=== PATIENT | male | born 1975 | race Caucasian/White ===

== ENCOUNTER 2019-02-11 09:07 | Day surgery (SDC) | payer BC ==
[2019-02-11] MEDS ORDERED: PROPOFOL 10 MG/ML VIAL IV ONE (09:08)
[2019-02-11] MEDS ORDERED: LIDOCAINE 2% MDV (20MG/ML) 20ML VIAL IV ONE (09:08)
--- NOTE | 2019-02-11 13:30 | Operative Note ---
DATE OF SURGERY: 02/11/2019 OPERATION: COLONOSCOPY to the cecum with cold biopsy forceps polypectomy. INDICATION: Colorectal cancer screening, family history of colon cancer (father). The patient also suffers with constipation. ANESTHESIA: Intravenous sedation was administered by the department of anesthesiology and included Diprivan titrated to effect. PROCEDURE: Following informed consent from this alert individual including a discussion of the risks and benefits of the procedure and an opportunity for the patient to ask questions, the patient was in the left lateral decubitus position. A digital rectal examination was performed. No abnormalities were noted. Following this, the Olympus [id number] video colonoscope was inserted into the rectum without resistance. The rectal mucosa had a normal appearance with normal folds and distensibility. The colonoscope was advanced up through the bowel to the level of the cecum without much difficulty. Throughout the bowel the mucosa appeared normal, the folds were normal, and the bowel was fairly well distensible. The cecum was defined by noting the appendiceal orifice and ileocecal valve. At the base of the cecum, there was a diminutive 3 mm polyp noted which was removed with one application of cold biopsy forceps. From this point, the colonoscope was slowly withdrawn. The colon preparation overall was good. No other changes were noted through the bowel upon withdrawal. Retroflexion in the rectum was endoscopically normal. The instrument was straightened and removed. The patient tolerated the procedure well and was returned to the recovery area in stable condition. IMPRESSION: 1. A 3 mm cecal polyp removed with cold biopsy forceps. 2. Otherwise unremarkable colonoscopy to the cecum. RECOMMENDATIONS: Because of the patient's family history of colon cancer in his father, I did recommend a surveillance examination in 5 years' time. Further recommendations may be forthcoming pending results of biopsy as well. Followup will be with Dr. Hernandez. As always, thank you for allowing me to participate in the care of your patient. CC: MD SHARIF Junior
== END 2019-02-11 10:55 | disposition home or self-care (01) ==
LOC: HOP 09:07
PROVIDERS: ATTEND Internal Medicine Gastroenterology
DX: Z12.11 Encounter for screening for malignant neoplasm of colon (principal); Z80.0 Family history of malignant neoplasm of digestive organs; Z87.19 Personal history of other diseases of the digestive system; D12.0 Benign neoplasm of cecum; E03.9 Hypothyroidism, unspecified

== ENCOUNTER 2019-09-23 16:05 | Emergency (ER) | payer BC ==
--- NOTE | 2019-09-23 16:42 | Emergency Department Record ---
History of Present Illness - General Chief Complaint: Chest Pain Stated Complaint: CHEST PAIN Time Seen by Provider: 09/23/19 16:40 Source: Patient Mode of Arrival: Ambulatory Limitations: No limitations - History of Present Illness Initial Comments: 44 yo male presents with chest pain. The onset was about 4 days ago. The pain is over the left upper chest. The pain is constant but more noticeable with certain movements. He reports he is just getting over a two week cough. At that time he had productive sputum and chills. He was treated by a tele medicine physician. He states the cough is better. He is not a smoker. His father did have an PA in his mid 50's. No DM, HTN, or hyperlipidemia. No known heart or lung disease. MD Complaint: Chest pain Onset/Timin -: Days(s) Pain Location: Left chest Pain Radiation: None Severity: Moderate Severity scale (1-10): 4 Quality: Dull Consistency: Constant Improves With: Nothing Worsens With: Movement Context: Recent illness Anginal Symptoms: Diaphoresis Treatments Prior to Arrival: Aspirin Treatment Prior to Arrival Comment:: 81mg - Related Data Home Medications Medication Instructions Recorded Confirmed Last Taken Cinnamon Bark [Cinnamon] 500 mg PO DAILY 09/23/19 09/23/19 1 Day Ago ~09/22/19 1 Ergocalciferol (Vitamin D2) 2,000 unit PO DAILY 09/23/19 09/23/19 1 Day Ago [Ergocal] ~09/22/19 Garlic 1 cap PO DAILY 09/23/19 09/23/19 1 Day Ago ~09/22/19 Allergies Allergy/AdvReac Type Severity Reaction Status Date / Time amoxicillin Allergy Unknown HIVES Verified 09/23/19 16:59 Penicillins Allergy Unknown HIVES Verified 09/23/19 16:59 Travel Screening - Travel/Exposure Within Last 30 Days Have you traveled within the last 30 days?: No - Travel/Exposure Within Last Year Have you traveled outside the [place] in the last year?: No - Additonal Travel Details Have you been exposed to anyone with a communicable illness?: No - Travel Symptoms Symptom Screening: None Review of Systems Constitutional: Denies: Chills, Fever, Malaise, Weakness Eyes: Denies: Eye discharge ENT: Denies: Congestion, Throat pain Respiratory: Reports: Cough. Denies: Dyspnea, Hemoptysis, Wheezes Cardiovascular: Reports: Chest pain. Denies: Edema, Palpitations, Syncope Endocrine: Denies: Fatigue, Polydipsia, Polyuria Gastrointestinal: Denies: Abdominal pain, Diarrhea, Nausea, Vomiting Genitourinary: Denies: Dysuria, Frequency, Hematuria Musculoskeletal: Denies: Arthralgia, Back pain, Joint swelling, Myalgia, Neck pain Skin: Denies: Bruising, Change in color, Rash Neurological: Denies: Headache, Numbness, Weakness Psychiatric: Denies: Anxiety Hematological/Lymphatic: Denies: Easy bleeding, Easy bruising Past Medical History - SOCIAL HISTORY Smoking Status: Former smoker Alcohol Use: None Drug Use: None - RESPIRATORY Hx Respiratory Disorders: Yes Hx Asthma: Yes (only uses inhaler with allergy season Spring/Fall) Hx Sleep Apnea: Yes Hx of CPAP: No (does not use) - CARDIOVASCULAR Hx Cardio Disorders: No Comment:: reports blood pressure is borderline high, doctor is monitoring - NEURO Hx Neuro Disorders: Yes Hx of Migraines: Yes (occ.) - GI Hx GI Disorders: Yes Hx Wt Loss/Wt Gain: Yes (gained 25 lbs in 2 years) Comment:: some constipation - Hx Genitourinary Disorders: No - ENDOCRINE Hx Endocrine Disorders: Yes Hx Thyroid Disease: Yes (underactive on rx) - MUSCULOSKELETAL Hx Musculoskeletal Disorders: Yes Comment:: Had surgery for back - PSYCH Hx Psych Problems: No - HEMATOLOGY/ONCOLOGY Hx Hematology/Oncology Disorders: No Family Medical History Any Significant Family History?: Yes Hx Cancer: Father *Cancer Comment: colon Hx Diabetes: Father, Mother Hx Heart Disease: Father Physical Exam - General General Appearance: Alert, Oriented x3, Cooperative, No acute distress Limitations: No limitations - Head Head exam: Atraumatic, Normal inspection - Eye Eye exam: Normal appearance, PERRL. negative: Conjunctival injection, Scleral icterus - ENT ENT exam: Normal exam, Mucous membranes moist Ear exam: Normal external inspection Nasal Exam: Normal inspection Mouth exam: Normal external inspection - Neck Neck exam: Normal inspection, Full ROM - Respiratory Respiratory exam: Normal lung sounds bilaterally, Chest wall tenderness (tender left mid upper chest on the left. The tender area covers about 2 ribs. He is non tender below and above the tender area) - Cardiovascular Cardiovascular Exam: Regular rate, Normal rhythm, Normal heart sounds. negative: Diastolic murmur, Systolic murmur Peripheral Pulses: 2+: Radial (R), Radial (L) - GI/Abdominal GI/Abdominal exam: Soft. negative: Tenderness - Rectal Rectal exam: Deferred - exam: Deferred - Extremities Extremities exam: Normal inspection. negative: Pedal edema, Tenderness - Back Back exam: Denies: CVA tenderness (R), CVA tenderness (L) - Neurological Neurological exam: Alert, Oriented X3 - Psychiatric Psychiatric exam: Normal affect, Normal mood - Skin Skin exam: Dry, Intact, Normal color, Warm Course Vital Signs 09/23/19 16:09 Temperature 98.2 F Pulse Rate 93 H Respiratory 18 Rate Blood Pressure 194/120 Pulse Ox 97 - Reevaluation(s) Reevaluation #1: 09/23/19 16:41 EKG #1: 16:18 Rate: 68 Rhythm: sinus Folcroft: left Intervals: normal ST segments: no acute changes Prior: none Normal EKG 09/23/19 17:51 09/23/19 17:56 The labs were reviewed The CBC and CMP are normal The Troponin is normal The D-Dimer is normal CXR ordered. 09/23/19 18:11 The XR was reviewed by me No acute findings. 09/23/19 18:36 The patient has very atypical symptoms. Constant 4 days. Negative labs and normal EKG His HEART score is low risk The plan is DC home if the second set of enzymes in negative He will be referred to the outpatient cardiology clinic We discussed reasons to return immediately to the ED as well. Medical Decision Making - Lab Data Result diagrams: 09/23/19 16:13 09/23/19 16:13 Disposition Disposition: Discharge Clinical Impression: Chest wall pain Disposition: Home, Self-Care Condition: (1) Good Instructions: Chest Pain (ED) Additional Instructions: Review this ER visit and the tests performed with your family doctor Call your doctor for the next available follow up appointment Return to the ER for a recheck if worse, any new concerns or questions Take the prescriptions provided as directed Referrals: Edmond Rich M.D. [MEDICAL DOCTOR] - [facility] Special[facility] [Provider Group] Forms: Patient Portal Access Time of Disposition: 18:11 Quality - Quality Measures Quality Measures: N/A - Blood Pressure Screening Does Patient Have Any of the Following: No Blood Pressure Classification: Hypertensive Reading Systolic Measurement: 194 Diastolic Measurement: 120 Screening for High Blood Pressure: < Pre-Hypertensive BP, F/U Documented > [G8950] Pre-Hypertensive Follow-up Interventions: Referral to alternative/primary care provider.
[2019-09-23 16:55] LABS: ABSOLUTE NEUTROPHIL COUNT 6.39; BASO % 0.3 % (0-6); EOS % 2.9 % (0-6); GRAN % 63.4 % (47-80); HEMATOCRIT 49.8 % (42.0-52.0); HEMOGLOBIN 16.4 gm/dl (14.0-18.0); LYMPH % 23.9 % (16-45); MEAN CELL VOLUME 85.7 fl (81-97); MEAN CORPUSCULAR HEMOGLOBIN 28.2 pg (27-33); MEAN CORPUSCULAR HGB CONC 32.9 g/dl (32-36); MONO % 9.5 % (0-9); PLATELET COUNT 317 K/uL (130-400); RED BLOOD COUNT 5.81 M/uL (4.40-5.70); WHITE BLOOD COUNT W/O DIFF 10.1 K/uL (4.2-12.2)
[2019-09-23] MEDS ORDERED: ASPIRIN 325 MG TABLET PO ONE (16:55)
[2019-09-23 17:15] LABS: BLOOD UREA NITROGEN 19 mg/dL (6-20); EST GLOMERULAR FILTRATION RATE > 60 mL/min
[2019-09-23 17:16] LABS: PARTIAL THROMBOPLASTIN TIME 28.9 SECONDS (24.5-39.1); PROTHROMBIN TIME (PATIENT) 9.9 SECONDS (9.5-12.1); TOTAL PROTEIN 7.7 g/dL (6.6-8.7)
[2019-09-23 17:18] LABS: GLUCOSE,RANDOM 122 mg/dL (74-109)
[2019-09-23 17:20] LABS: ALT/SGPT 60 U/L (<41); AST/SGOT 34 U/L (10.0-50.0)
[2019-09-23 17:21] LABS: ALB/GLOB RATIO 1.8 (1.1-1.8); ALBUMIN 4.9 g/dL (4.0-5.0); ALKALINE PHOSPHATASE 101 U/L (40-129)
--- NOTE | 2019-09-23 18:35 | RADIOLOGY REPORT ---
EXAMINATION: Frontal and Lateral Chest EXAM DATE: 09/23/2019 6:05 PM INDICATION: chest pain FINDINGS: Lung volumes are low, with no definite infiltrates or effusions. Normal cardiac silhouette. Dictated by: Lucas Lamar MD on 09/23/2019 6:32 PM. .
== END 2019-09-23 19:07 | disposition home or self-care (01) ==
LOC: ER 16:05
DX: R07.89 Other chest pain (principal); R05 Cough; Z87.891 Personal history of nicotine dependence; R42 Dizziness and giddiness
CPT/HCPCS: 71046; 80053; 84484; 85025; 85379; 85610; 85730; 93005; 93010; 99284